=== PATIENT | male | born 1955 ===

== ENCOUNTER 2021-03-21 12:45 | Emergency (ER) | payer MEDICAID ==
[~2021-03-21] VITALS: Ht 165.1 cm; Wt 59.0 kg
--- NOTE | 2021-03-21 13:12 | NUR ---
PT SEEN AND EVALUATED BY DR LAWSON.
[2021-03-21] MEDS ORDERED: ACET500C4 PO (13:16)
--- NOTE | 2021-03-21 13:17 | NUR ---
Patient discharged to home in stable condition. Written and verbal after care instructions given. Patient verbalizes understanding of instructions. Stressed follow up or return to ER for worsening s/s.
[2021-03-21 13:28] VITALS: BP_SYST 140
[2021-03-21] MEDS ORDERED: ACETAMINOPHEN 650 MG/20.3 ML LIQUID UDC PO ONE (13:30)
[2021-03-21] MEDS ORDERED: ACETAMINOPHEN 650 MG/20.3 ML LIQUID UDC ONE (13:35)
== END 2021-03-21 13:28 | disposition home or self-care (01) ==
LOC: ER 12:49
DX: K40.90 Unilateral inguinal hernia, without obstruction or gangrene, not specified as recurrent (principal)
CPT/HCPCS: A4663

== ENCOUNTER 2025-01-24 04:30 | Emergency (ER) | payer MEDICAID ==
[~2025-01-24] VITALS: Ht 165.1 cm; Wt 63.5 kg
[~2025-01-24 04:30] MED LIST: ACET500C4 PO
[2025-01-24 05:06] LABS: PLATELET COUNT (AUTO) 234 K/uL (152-348); RED BLOOD CELL COUNT(AUTO) 4.86 MIL/uL (4.06-5.63); RED CELL DISTRIBUTION WIDTH 14.2 % (12.1-16.2); WHITE BLOOD COUNT (AUTO) 10.6 K/uL (3.6-10.2)
[2025-01-24 05:12] LABS: CREATININE 1.0 mg/dL (0.6-1.3); SODIUM SERUM 142 mmol/L (136-145); UREA NITROGEN, BLOOD 15 mg/dL (7-18)
[2025-01-24 05:15] VITALS: BP 151/74; O2SAT 100
[2025-01-24] MEDS ORDERED: HEPARIN SODIUM,PORCINE 5,000 UNITS/ML VIAL ONE (05:15)
[2025-01-24 05:18] LABS: ASPARTATE AMINOTRANSFERASE 11 U/L (15-37); TOTAL PROTEIN, SERUM 7.8 g/dL (6.4-8.2)
[2025-01-24] MEDS: HEPARIN SODIUM,PORCINE/PF 500 UNIT/5 ML SYR IV ONE ×2 (05:18)
[2025-01-24] MEDS ORDERED: ONDANSETRON 4 MG/2 ML VIAL ONE (05:21)
[2025-01-24] MEDS: ONDANSETRON 4 MG/2 ML VIAL IV ONE (05:23)
== END 2025-01-24 05:30 | disposition short-term general hospital (02) ==
LOC: ER 04:48
DX: I21.19 ST elevation (STEMI) myocardial infarction involving other coronary artery of inferior wall (principal); R00.1 Bradycardia, unspecified; R11.0 Nausea; F17.200 Nicotine dependence, unspecified, uncomplicated; Z95.5 Presence of coronary angioplasty implant and graft; Z87.19 Personal history of other diseases of the digestive system; Z60.2 Problems related to living alone
CPT/HCPCS: 99291; 96374; 96375; 80076; 80048; 83880; 85025; 85730; 84484; 36415; 93005; J1644; J2405; A4606; A4663